=== PATIENT | female | born 1945 | race Two or more races ===

== ENCOUNTER 2022-04-08 09:48 | Emergency (ER) | payer OTHER ==
[~2022-04-08] VITALS: Ht 157.5 cm; Wt 85.3 kg
[2022-04-08] MEDS ORDERED: SYNTHROID112 MCG PO (09:55)
[2022-04-08] MEDS ORDERED: METFORMIN HCL500 M3 PO (09:56)
[2022-04-08] MEDS ORDERED: COZAAR50 MG PO (09:56)
[2022-04-08] MEDS ORDERED: SIMVASTATIN20 MG PO (09:56)
[2022-04-08] MEDS ORDERED: PROTONIX20 MG PO (09:57)
== END 2022-04-08 12:41 | disposition home or self-care (01) ==
LOC: ER 09:48
DX: U07.1 COVID-19 (principal)